=== PATIENT | female | born 1980 | race African-American/Black ===

== ENCOUNTER 2018-10-30 14:33 | Outpatient (CLI) | payer SELFPAY | END 2018-10-30 14:35 | LOC: LABRHC 14:33 | PROVIDERS: ATTEND Nurse Practitioner Family | DX: N39.0 Urinary tract infection, site not specified (principal) | CPT/HCPCS: 87086 ==

== ENCOUNTER 2019-07-19 20:52 | Emergency (ER) | payer SELFPAY ==
[2019-07-19 21:12] VITALS: BP 159/93
[2019-07-19] MEDS ORDERED: ORPHENADRINE CITRATE 60 MG/2 ML ML IM ONE (21:28)
[2019-07-19] MEDS ORDERED: KETOROLAC TROMETHAMINE 60 MG/2 ML VIAL IM ONE (21:28)
--- NOTE | 2019-07-19 21:30 | ED Physician Documentation ---
Low Back Pain - HISTORIAN Historian: patient - HPI Stated Complaint: LBP, possibly over Rt kidney...Hx of kidney stones years ago Chief Complaint: Low Back Pain/ Injury Further Comments: yes (39 year old female presents with right lower back pain. Patient reports a history of kidney stones; is concerned it may be another stone. Reports pain started last night; worse tonight. Denies taking any pain medication [employer]ACHINE [employer]. Reports pain radiating into buttock and down right leg. Patient denies any heavy lifting, fall or injury.) - ROS CONST: no problems CVS/RESP: none EYES/ENT: none MS/SKIN/LYMPH: none Neuro/Psych: none GI/: denies: abdominal pain, black stools - PAST HX Past History: kidney stones Other History: other (renal calculi) Allergies/Adverse Reactions: Allergies Allergy/AdvReac Type Severity Reaction Status Date / Time No Known Drug Allergies Allergy Verified 07/19/19 21:12 Home Medications: Ambulatory Orders Medication Instructions Recorded Baclofen [Liorasal] 10 mg PO TID PRN #15 tablet 07/19/19 Ketorolac Tromethamine [Toradol] 10 mg PO TID #15 tablet 07/19/19 - SOCIAL HX Smoking History: non-smoker - FAMILY HX Family History: denies: none - VITAL SIGNS Vital Signs: Vital Signs Temp Pulse Resp BP Pulse Ox 98.1 F 101 H 16 159/93 07/19/19 20:53 07/19/19 20:53 07/19/19 20:53 07/19/19 20:53 - REVIEWED ASSESSMENTS Nursing Assessment Reviewed: Yes Vitals Reviewed: Yes ED Results Lab/Radiology - Orders Orders: ED Orders Category Date Time Status Ketorolac Tromethamine [Toradol] Med 07/19/19 21:28 Discontinued 60 mg IM NOW ONE Orphenadrine Citrate [Norflex] Med 07/19/19 21:28 Discontinued 60 mg IM NOW ONE Low Back Pain/Injury - Physical Exam General Appearance: mild distress EENT: eye inspection normal Resp/CVS: reg. rate & rhythm Back: muscle spasm (right lumbar), other (tenderness in right paraspinous muscles at L4-S1;). No: vertebral point-tendernes Straight Leg Raising: Negative Left, Negative Right Neuro/Psych: oriented x3, motor nml, sensation nml, bilat. doriflexion nml, ref lexes nml, mood/affect nml Skin: normal color, warm/dry, NR, INT, PAL, DR Extremities: non-tender, normal range of motion, no evidence of injury, no e Chyna owusu, [employer]OR [employer]ST[employer]ER Discharge Clincal Impression: Sciatica of right side Low back pain Qualifiers: Chronicity: acute Back pain laterality: right Sciatica presence: with sciatica Sciatica laterality: sciatica of right side Qualified Code(s): M54.41 - Lumbago with sciatica, right side Prescriptions: Baclofen [Liorasal] 10 mg PO TID PRN #15 tablet PRN Reason: Spasms Ketorolac Tromethamine [Toradol] 10 mg PO TID #15 tablet Referrals: Primary Doctor,No [Primary Care Provider] - 2 Days Additional Instructions: Ice Rest Elevation If you are unable to bear weight and continuing to have significant pain on day 3-4; see your PCP for re-evaluation and additional xrays. You may use Tylenol every 4hour as needed for pain. Limit your dose to less than 4 G per day. Do not take ibuprofen, aleve, naproxen or any other NSAID while you are on toradol. You may want to try massage, over the counter lidocaine patches, biofreeze, nohelia marquez or aspercream . Condition: Fair Decision to Admit: NO Decision Time: 21:32
[2019-07-20 06:38] LABS: APPEARANCE,URINE CLEAR (CLEAR); COLOR,URINE YELLOW (YELLOW); OCCULT BLOOD,URINE NEGATIVE (NEGATIVE); PH URINE 5.5 (5.0 - 8.0); UROBILINOGEN URINE 0.2 Eu (0.2-1.0)
== END 2019-07-19 22:15 | disposition home or self-care (01) ==
LOC: ED 20:52 → SUPCPDRO 20:52 → ED 22:15
DX: M54.41 Lumbago with sciatica, right side (principal)
CPT/HCPCS: 81002; 96372; 99283; 99284; J1885; J2360